=== PATIENT | male | born 1970 | race Caucasian/White ===

== ENCOUNTER 2024-02-27 15:21 | Emergency (ER) | payer BC ==
[~2024-02-27] VITALS: Ht 160 cm; Wt 79.4 kg
[2024-02-27 15:21] VITALS: BP_SYST 147; PULSE 102; RESP 18; TEMP 96.5; O2SAT 96
[2024-02-27 17:15] VITALS: BP_SYST 143; PULSE 78; RESP 18; O2SAT 99
== END 2024-02-27 17:17 ==
LOC: SED 15:21
DX: Z02.89 Encounter for other administrative examinations (principal); I10 Essential (primary) hypertension; F41.9 Anxiety disorder, unspecified; F32.A Depression, unspecified
CPT/HCPCS: 99283